=== PATIENT | female | born 1945 | race Caucasian/White ===

== ENCOUNTER 2019-04-26 05:16 | Day surgery (SDC) | payer OTHER ==
[2019-04-22 14:42] VITALS: BMI 19.7
[2019-04-26] MEDS ORDERED: PROPOFOL 20 ML ONE (07:14)
[2019-04-26] MEDS ORDERED: MIDAZOLAM HCL 2 MG/2 ML SINGLE DOSE VIAL ONE (07:14)
[2019-04-26] MEDS ORDERED: LIDOCAINE HCL/PF 2% SDV 5ML VIAL ONE (07:17)
--- NOTE | 2019-04-26 07:42 | HP ---
Admitting History and Physical - Admission Chief Complaint: Abnormal sonogram / Pelvic pain History of Present Illness: 73 yo with pelvic pain and abnormal sonogram is pre op for D&C Hysteroscopy. History Source: Patient Limitations to Obtaining History: No Limitations - Past Surgical History Past Surgical History: Yes: None - Smoking History Smoking history: Never smoked - Alcohol/Substance Use Hx Alcohol Use: No - Social History Usual Living Arrangement: Yes: With Child History of Recent Travel: No Home Medications - Allergies Allergies/Adverse Reactions: Allergies Allergy/AdvReac Type Severity Reaction Status Date / Time No Known Allergies Allergy Verified 04/26/19 06:31 - Home Medications Home Medications: Ambulatory Orders Atorvastatin Ca [Lipitor] 20 mg PO HS 04/22/19 Dexlansoprazole [Dexilant] 60 mg PO DAILY 04/22/19 Icosapent Ethyl [Vascepa] 1 gm PO DAILY 04/22/19 Metronidazole 500 mg PO DAILY 04/22/19 Family Medical History Family History: Unremarkable Review of Systems - Review of Systems Constitutional: denies: Chills, Fever Neck: reports: No Symptoms Cardiovascular: denies: Chest Pain, Palpitations, Shortness of Breath Respiratory: denies: SOB, SOB on Exertion Gastrointestinal: denies: Abdominal Pain Breasts: reports: No Symptoms Reported Musculoskeletal: denies: Back Pain, Muscle Pain Integumentary: reports: No Symptoms Neurological: reports: No Symptoms Psychiatric: reports: No Symptoms Physical Examination Vital Signs: Vital Signs Temperature 97.8 F 04/26/19 06:27 Pulse Rate 52 L 04/26/19 06:27 Respiratory Rate 16 04/26/19 06:27 Blood Pressure 127/60 04/26/19 06:27 O2 Sat by Pulse Oximetry (%) 100 04/26/19 06:28 Constitutional: No: No Distress Neck: Yes: Trachea Midline Cardiovascular: No: Bradycardia, Tachycardia, Pulse Irregular Respiratory: No: Cough Gastrointestinal: Yes: Normal Bowel Sounds Musculoskeletal: Yes: WNL Extremities: Yes: WNL Neurological: Yes: Alert, Oriented ...Motor Strength: WNL Psychiatric: Yes: Alert, Oriented Problem List - Problems (1) Pelvic pain Problems reviewed: Yes Code(s): R10.2 - PELVIC AND PERINEAL PAIN (2) Abnormal genitourinary ultrasound Problems reviewed: Yes Code(s): R93.89 - ABNORMAL FINDINGS ON DX IMAGING OF OTH BODY STRUCTURES Assessment/Plan Pelvic pain Abnormal sonogram Pre op for D&C Hysteroscopy Consent signed Anesthesia to see patient
--- NOTE | 2019-04-26 08:24 | OP ---
Operative Note - Note: Operative Date: 04/26/19 Pre-Operative Diagnosis: Pelvic pain / Abnormal sonogram Operation: D&C Hysteroscopy Post-Operative Diagnosis: Same as Pre-op Surgeon: Chika Crain Anesthesia: General Specimens Removed: Endometrial curettings Estimated Blood Loss (mls): 5 Operative Report Dictated: Yes
[2019-04-26 09:04] VITALS: TEMP 97.5
[2019-04-26] MEDS ORDERED: ONDANSETRON 4 MG/2 ML VIAL IVPUSH PRN (09:12)
[2019-04-26] MEDS ORDERED: oxyCODONE HCL 5 MG TABLET PO PRN (09:12)
[2019-04-26] MEDS ORDERED: LACTATED RINGERS SOLUTION 1,000 ML IV SCH (09:15)
[2019-04-26 10:49] VITALS: BP 106/67; PULSE 64
--- NOTE | 2019-04-26 11:23 | OP ---
DATE OF OPERATION: 04/26/2019 PREOPERATIVE DIAGNOSIS: Pelvic pain with abnormal sonogram. POSTOPERATIVE DIAGNOSIS: Pelvic pain with abnormal sonogram. PROCEDURE: Dilation and curettage, hysteroscopy. SURGEON: Chika Crain MD ANESTHESIA: General. COMPLICATIONS: None. ESTIMATED BLOOD LOSS: Less than 5 mL. DESCRIPTION OF PROCEDURE: Patient was taken to the operating room where general anesthesia was administered. Patient was then placed in lithotomy position. She was then prepped and draped in proper sterile fashion. A weighted speculum was placed in the vagina. The anterior lip of the cervix was grasped with a single-tooth tenaculum. Then the uterus was sounded to about 5 cm then the hysteroscope was then gently introduced into the uterine cavity. The uterine cavity was visualized. There was no polyp, no mass visualized. Then the sharp curettage was then performed then the instruments were removed. The patient was taken out of lithotomy position. She was taken to PACU in stable condition. PATHOLOGY: Endometrial curettings. Chin [id number]
--- NOTE | 2019-04-26 12:02 | OP ---
DATE OF OPERATION: 04/26/2019 PREOPERATIVE DIAGNOSIS: Pelvic pain with abnormal sonogram. POSTOPERATIVE DIAGNOSIS: Pelvic pain with abnormal sonogram. PROCEDURE: Dilation and curettage, hysteroscopy. SURGEON: Chika Crain MD ANESTHESIA: General. COMPLICATIONS: None. ESTIMATED BLOOD LOSS: Less than 5 mL. PROCEDURE: Patient was taken to the operating room, where general anesthesia was administered. Patient was then prepped and draped in appropriate sterile fashion. A weighted speculum was placed in the vagina. The anterior lip of the cervix was grasped with a single-tooth tenaculum. The uterus was sounded to 5 to 6 cm and the 5-mm hysteroscope was then gently introduced into the uterine cavity. The cavity was visualized. Both ostia were visualized. No mass, no polyp noted. The hysteroscope was removed. The cervix was sequentially dilated with Rascon dilators. A sharp curettage was then performed. When finished, the instruments were removed. The patient was taken out of lithotomy position. She was taken to PACU in stable condition. PATHOLOGY: Endometrial curettings. Chin [id number]
--- NOTE | 2019-04-27 17:26 | PATH ---
Surgical Pathology Report Patient Name: SOFÍA ROCA [facility]. Rec. #: [id number] /Age/Gender: 1945 (Age: 73) / F Account: [id number] Location: [facility] SURGICAL Taken: 04/26/2019 Received: 04/26/2019 Reported: 04/27/2019 Physicians: Chika Crain M.D. Specimen(s) Received ENDOMETRIAL CURETTINGS Clinical History Pelvic pain Final Diagnosis ENDOMETRIAL CURETTINGS, DILATION AND CURETTAGE: STRIPS OF ENDOMETRIAL GLANDS COMPATIBLE WITH ATROPHIC ENDOMETRIUM AND FRAGMENTS OF SCANT BENIGN ENDOCERVICAL TISSUE. Electronically Signed Sofía Lombardo M.D. Gross Description Received in formalin labeled "endometrial curettings," is a 0.4 x 0.4 x 0.1 cm aggregate of wright soft tissue fragments admixed with mucus. The formalin is filtered and the specimen is entirely submitted in one cassette. DL/04/26/2019 saudi/04/26/2019
== END 2019-04-26 10:35 | disposition home or self-care (01) ==
LOC: JASU-SURG 05:16
PROVIDERS: ATTEND Obstetrics & Gynecology
PROC: 0UDB7ZX Extraction of Endometrium, Via Natural or Artificial Opening, Diagnostic (ICD-10-PCS; principal; 2019-04-26 07:30)
PROC: 0UJD8ZZ Inspection of Uterus and Cervix, Via Natural or Artificial Opening Endoscopic (ICD-10-PCS; 2019-04-26 07:30)
DX: R10.2 Pelvic and perineal pain (principal); R94.8 Abnormal results of function studies of other organs and systems
CPT/HCPCS: 88305-TC; 94760